=== PATIENT | female | born 2000 ===

== ENCOUNTER 2021-05-03 07:41 | Emergency (ER) | payer OTHER, SELFPAY ==
[2021-05-03 07:45] VITALS: BP 118/76; PULSE 93; RESP 18; TEMP 36.3; O2SAT 99
--- NOTE | 2021-05-03 07:48 | DI.RAD.S_ITS ---
PROCEDURE: XR CHEST 1V INDICATIONS: chest pain TECHNIQUE: One view of the chest was acquired. COMPARISON: None. FINDINGS: Surgical changes and devices: None. Lungs and pleura: Lungs are clear. No pleural effusions or pneumothorax. Mediastinum: Mediastinal contours appear normal. Heart size is normal. Bones and chest wall: No suspicious bony lesions. Overlying soft tissues appear unremarkable. IMPRESSION: No acute cardiopulmonary pathology. Dictated by: Phillip Keating M.D. on 05/03/2021 at 8:16 Approved by: Phillip Keating M.D. on 05/03/2021 at 8:16
--- NOTE | 2021-05-03 07:54 | ED_ITS ---
HPI - General Adult General Chief complaint: Chest Pain Stated complaint: Chest pain Time Seen by Provider: 05/03/21 07:48 History of Present Illness HPI narrative: Patient is an otherwise healthy 21-year-old female who is here for evaluation of off and on episodes of retrosternal sharp chest discomfort. She states that happened a couple weeks ago. Lasted a couple days but then completely resolved. Last evening it occurred once again. She thinks that it does get better when she pushes hard on it. Does get worse when she moves around. No shortness of breath. She does have a history of anxiety and thought that maybe this was an anxiety/panic attack although she has never had chest pain in the past with a panic attack. She is not on control. No fevers. No cough. No lower extremity swelling. Called the nurse advice line last evening who told her to come in this morning to be evaluated. She is currently asymptomatic. Related Data Home Medications Medication Instructions Recorded Confirmed No Known Home Medications 05/03/21 05/03/21 Allergies Allergy/AdvReac Type Severity Reaction Status Date / Time No Known Drug Allergies Allergy Verified 05/03/21 07:54 Review of Systems Constitutional Constitutional: Denies fever(s) and Denies headache(s) ENT Ears, Nose, Mouth, and Throat: Denies headache(s) Cardiovascular Cardiovascular: Reports as per HPI Respiratory Respiratory: Reports system reviewed and no additional complaints, except as documented Gastrointestinal Gastrointestinal: Reports system reviewed and no additional complaints, except as documented Integumentary/Breasts Skin/Breast: Reports system reviewed and no additional complaints, except as documented Neurologic Neurologic: Denies headache(s) Psychiatric Psychiatric: Reports anxiety Hematologic/Lymphatic On Anticoagulants: No Patient History Medical History Healthy female adult Social History Smoking Status: Never smoker Exam Initial Vital Signs Initial Vital Signs: Vital Signs Temperature 97.4 F L 05/03/21 07:45 Pulse Rate 93 H 05/03/21 07:45 Respiratory Rate 18 05/03/21 07:45 Blood Pressure 118/76 05/03/21 07:45 Pulse Oximetry 99 05/03/21 07:45 Const General: cooperative, healthy appearing and comfortable [facility] Head: normal to inspection and normocephalic Chest Other: Does have some tenderness to palpation over the sternum which she states is very similar to her presenting complaint Resp Effort & Inspection: normal respiratory effort Auscultation: clear to auscultation bilaterally Cardio Rate: regular rate Rhythm: regular rhythm GI Inspection: normal to inspection Palpation: soft and No tender Skin General: no rashes or lesions noted Neuro General: patient alert, patient awake and patient oriented x3 Extrem General: normal to inspection and capillary refill normal Psych Appearance: grossly normal Scores PERC Score Age greater than or equal to 50 years: No Heart rate greater than or equal to 100 bpm: No Room Air O2 Sat less than 95%: No Unilateral leg swelling: No Recent trauma or surgery: No Hemoptysis: No Prior PE or DVT: No Hormone Use: No Total PERC Score: 0 Course Orders Ordered: ED Orders 05/03/21 07:48 XR chest 1V Stat 05/03/21 07:49 EKG-12 Lead Stat Vital Signs Vital signs: Vital Signs - 8 hr 05/03/21 07:45 Temperature 97.4 F L Pulse Rate 93 H Respiratory Rate 18 Blood Pressure 118/76 Pulse Oximetry 99 Medical Decision Making Imaging Data Chest x-ray: Attestation: I personally reviewed and interpreted this imaging study as follows: My Impression: No pneumonia, no pneumothorax ECG Data Attestation: I personally reviewed and interpreted this ECG as follows: Prior ECG tracings: not available for review Interpretation: Sinus rhythm Ventricular rate 87 Normal axis Normal QRS Normal QTC No ST T wave changes MDM Narrative Medical decision making narrative: Low risk for ACS. Low risk for pulmonary embolism. Has no upper abdominal pain. Low suspicion for gallbladder pathology. Low suspicion for pancreatitis. She has a benign abdominal exam. I feel we can hold on further radiologic studies passed a chest x-ray which does not show any signs of pneumonia/pneumothorax. Symptoms most likely related to anxiety in the patient agrees with this. We will hold on further workup for now. She was given return precautions and follow-up instructions. She expressed understanding and agreement. Discharge Plan Departure Patient Disposition: Home Clinical Impression: Atypical chest pain Instructions: DI for Atypical Chest Pain Activity Restrictions/Additional Instructions: You have no restrictions on your activities. I recommend that you contact your primary provider for a follow-up. Return to the emergency department for any new worsening symptoms. Prescriptions: No Action No Known Home Medications RF: 0
[2021-05-03 08:38] VITALS: BP 110/72; PULSE 88; RESP 16; O2SAT 98
== END 2021-05-03 08:39 | disposition home or self-care (01) ==
PROVIDERS: Emergency Provider Emergency Medicine
DX: R07.89 Other chest pain (principal)
CPT/HCPCS: 71045; 93005; 99283; 99284

== ENCOUNTER 2022-04-22 13:04 | Emergency (ER) | payer OTHER, SELFPAY ==
[2022-04-22 13:08] VITALS: BP 128/88; PULSE 81; RESP 18; TEMP 36.6; O2SAT 99; BMI 24.7
[2022-04-22] MEDS: AMOXICILLIN/CLAV 875/125 MG 1 TAB PO (13:30)
[2022-04-22] MEDS: IBUPROFEN 400 MG TABLET 800 MG PO (13:30)
--- NOTE | 2022-04-22 13:31 | ED_ITS ---
HPI - Pediatric HENT <AUDREY Pablo - Last Filed: 04/22/22 13:36> General Chief complaint: Dizziness Stated complaint: Dizzy, sinus infection Time Seen by Provider: 04/22/22 13:07 Source: patient Mode of arrival: Ambulatory History of Present Illness HPI Narrative: This is a 22-year-old female without significant medical history who presents to the emergency department complaining of sinus tenderness, congestion, headache, and occasional dizziness with head movements which has gotten worse over the last 12 days. She states that she is been to the urgent care 2 or 3 times already and has not received antibiotics. She denies any history of asthma, denies being a smoker, denies any cough, fevers, eye pain, throat pain or other. States that she is had negative COVID test at home, does not have a cough. She denies any other symptoms or hearing changes. She denies any weakness. She states that she has been using Sudafed, Zyrtec for her symptoms without relief. Related Data Previous Rx's Medication Instructions Recorded fluticasone propionate 50 1 spray intranasal BID #16 grams 04/22/22 mcg/actuation nasal spray,suspension Allergies Allergy/AdvReac Type Severity Reaction Status Date / Time No Known Drug Allergies Allergy Verified 04/22/22 13:08 Pediatric Review of Systems <AUDREY Pablo - Last Filed: 04/22/22 13:36> Review of Systems: Review of systems is negative for acute abnormalities unless otherwise noted in HPI Patient History <AUDREY Pablo - Last Filed: 04/22/22 13:36> Medical History Healthy female adult Social History Smoking Status: Never smoker Smoking Status: Never smoker alcohol intake frequency: 0-2 drinks per day Substance Use Type: does not use Pediatric Exam <AUDREY Pablo - Last Filed: 04/22/22 13:36> Narrative Physical exam: Reviewed vitals signs and nursing notes. General: cooperative, comfortable, in no acute distress, well groomed HEENT: Tenderness over frontal and maxillary sinuses, nares are patent with congestion, voice and speech is clear, no anterior cervical lymphadenopathy, EOMI, symmetrical facial expressions, moist mucous membranes Cardiovascular: regular rate and rhythm, no peripheral edema, warm extremities Respiratory: normal effort, able to speak in complete sentences, without wheezing, stridor, or abnormal breath sounds. No retractions or tachypnea. Skin: brisk capillary refill, without pallor or erythema Neuro: normal speech and cognition, A&O x3, ambulatory, clear speech Psych: mental status is grossly normal, congruent mood, normal affect, pleasant and cooperative Initial Vital Signs Initial Vital Signs: Vital Signs Temperature 97.8 F 04/22/22 13:08 Pulse Rate 81 04/22/22 13:08 Respiratory Rate 18 04/22/22 13:08 Blood Pressure 128/88 04/22/22 13:08 Pulse Oximetry 99 04/22/22 13:08 Oxygen Delivery Method 04/22/22 13:08 General Limitations: no limitations <Cecilio Wayne MD - Last Filed: 04/29/22 07:36> Initial Vital Signs Initial Vital Signs: Vital Signs Temperature 97.8 F 04/22/22 13:08 Pulse Rate 81 04/22/22 13:08 Respiratory Rate 18 04/22/22 13:08 Blood Pressure 128/88 04/22/22 13:08 Pulse Oximetry 99 04/22/22 13:08 Oxygen Delivery Method 04/22/22 13:08 Course <AUDREY Pablo - Last Filed: 04/22/22 13:36> Orders Ordered: Discontinued Medications Amoxicillin/Clavulanate Potassium (Amoxicillin/Clav 875/125 Mg) 1 tab PO NOW ONE Stop: 04/22/22 13:18 Last Admin: 04/22/22 13:30 Dose: 1 tab Documented By: AT Ibuprofen (Ibuprofen 400 Mg Tablet) 800 mg PO NOW ONE Stop: 04/22/22 13:18 Last Admin: 04/22/22 13:30 Dose: 800 mg Documented By: AT Vital Signs Vital signs: Vital Signs - 8 hr 04/22/22 13:08 Temperature 97.8 F Pulse Rate 81 Respiratory Rate 18 Blood Pressure 128/88 Pulse Oximetry 99 Oxygen Delivery Method Room Air <Cecilio Wayne MD - Last Filed: 04/29/22 07:36> Orders Ordered: Discontinued Medications Amoxicillin/Clavulanate Potassium (Amoxicillin/Clav 875/125 Mg) 1 tab PO NOW ONE Stop: 04/22/22 13:18 Last Admin: 04/22/22 13:30 Dose: 1 tab Documented By: AT Ibuprofen (Ibuprofen 400 Mg Tablet) 800 mg PO NOW ONE Stop: 04/22/22 13:18 Last Admin: 04/22/22 13:30 Dose: 800 mg Documented By: AT Vital Signs Vital signs: Vital Signs - 8 hr 04/22/22 13:08 Temperature 97.8 F Pulse Rate 81 Respiratory Rate 18 Blood Pressure 128/88 Pulse Oximetry 99 Oxygen Delivery Method Room Air Medical Decision Making <Judy Ware PICKER - Last Filed: 04/22/22 13:36> MDM Narrative Medical decision making narrative: This is a 22-year-old female presents to the emergency department complaining of sinus congestion, tenderness, and now with headaches for the last 12 days and has not had antibiotics. She has tried decongestants, an allergy medication not had much relief. She had tenderness over frontal and maxillary sinuses on exam, nares are patent with congestion, posterior pharynx is normal. Patient does not have a cough. #331 & 332: Antibiotic use with Sinusitis *if the second, third, or fourth prompt is selected, only then should the clinician see the sub-prompts addressing amoxicillin [] The patient has sinusitis and antibiotics are not indicated/not prescribed at this time. [SATISFIES MIPS PERFORMANCE] [x] The patient has sinusitis with symptom onset greater than 10 days ago and the patient was prescribed antibiotics. [SATISFIES MIPS PERFORMANCE] [x] Patient was prescribed an amoxicillin-based antibiotic. Discharge Plan Departure Patient Disposition: Home Clinical Impression: Sinusitis Qualifiers: Sinusitis location: frontal Chronicity: acute Recurrence: non-recurrent Qualified Code(s): J01.10 - Acute frontal sinusitis, unspecified Instructions: DI for Sinusitis Activity Restrictions/Additional Instructions: *You have been diagnosed with sinusitis. Please use saline spray or Flonase as needed to help with your congestion, decongestants can help if you have fullness in her ears and head, remember to stay hydrated, use ibuprofen 8 mg every 8 hours as needed with food and water to help with your pain. Follow-up with [facility] as needed for return to duty. I hope you feel better soon. *What to do: *Please continue to take your regular medications as directed. [ x] New medication prescriptions sent to your pharmacy: [ [facility]] [ ] New medication written as a paper prescription [ ] No new medications given *Please follow up with your primary care provider in 2-3 days, call for an appointment. Let them know you were seen in the Emergency Department and that we asked that you be seen for follow-up. We will electronically transmit a record of today's note if your PCP is in our system *If you do not have a primary care provider please contact [phone] to establish care with one of [facility] primary care providers. *Return to Emergency Department if you should have any new, worsening, or concerning symptoms, such as [fever greater than 101F, chills, worsening pain, persistent vomiting or other bothersome symptoms]. Prescriptions: New fluticasone propionate 50 mcg/actuation spray,suspension 1 spray intranasal BID Qty: 16 0RF Rx Instructions: administer into each nostril Referrals: Miscellaneous,[facility] [Primary Care Provider] - Visit Report Forms: Patient Portal/API <Cecilio Wayne MD - Last Filed: 04/29/22 07:36> Cosign ED Attending Shaileshature Attestation: I was immediately available for consultation of this patient was seen and evaluated by the APC in the department.
== END 2022-04-22 13:34 | disposition home or self-care (01) ==
PROVIDERS: Emergency Provider Nurse Practitioner Critical Care Medicine
DX: J01.10 Acute frontal sinusitis, unspecified (principal)
CPT/HCPCS: 99283

== ENCOUNTER → 2023-12-18 10:36 | Outpatient (CLI) | payer OTHER, SELFPAY ==
--- NOTE | 2023-12-18 10:37 | DI.MRI.S_ITS ---
PROCEDURE: MR CERVICAL SPINE WO CON INDICATIONS: PAIN TECHNIQUE: Noncontrast sagittal T1 spin echo and T2 fast spin echo, sagittal STIR, foraminal oblique sagittal T2 fast spin echo, and axial gradient echo or T2 fast spin echo through the cervical spine. COMPARISON: None. FINDINGS: Image quality: Excellent. Alignment and Curvature: There is normal bony alignment. Bone Marrow: Marrow demonstrates normal overall signal. Spinal Cord: Visualized spinal cord has normal size and signal. No cerebellar tonsillar herniation. Paraspinous Soft Tissues: No paravertebral masses. Prevertebral soft tissues are normal in thickness. C2-C3: No disc bulge, spinal stenosis or foraminal narrowing. C3-C4: No disc bulge, spinal stenosis or foraminal narrowing. C4-C5: No disc bulge, spinal stenosis or foraminal narrowing. C5-C6: No disc bulge, spinal stenosis or foraminal narrowing. C6-C7: No disc bulge, spinal stenosis or foraminal narrowing. C7-T1: No disc bulge, spinal stenosis or foraminal narrowing. IMPRESSION: No disc bulge, spinal stenosis or foraminal narrowing. Dictated by: Jazzmine Do M.D. on 12/18/2023 at 12:40 Approved by: Jazzmine Do M.D. on 12/18/2023 at 13:01
== END ==
PROVIDERS: Referring Provider Preventive Medicine Aerospace Medicine; Visit Provider Preventive Medicine Aerospace Medicine
DX: M54.2 Cervicalgia (principal)
CPT/HCPCS: 72141